=== PATIENT | male | born 1995 | race Asian ===

== ENCOUNTER 2017-06-28 12:48 | Emergency (ER) | payer MEDICAID ==
--- NOTE | 2017-06-28 13:08 | EDPHY ---
H & P Stated Complaint: GENERALIZED ABD PAIN SINCE THIS MORNING/NAUSEA Time Seen by Provider: 06/28/17 12:57 HPI/ROS: CHIEF COMPLAINT: Diffuse abdominal pain since this morning HISTORY OF PRESENT ILLNESS: 21-year-old male with remote history of appendectomy complaining of diffuse abdominal pain, cramping since this morning. Last bowel movement was this morning was normal, no melena hematochezia. No nausea or vomiting. He ate breakfast but notes that this exacerbated his abdominal pain. No recent illness. No fever or chills. No urinary abnormality. REVIEW OF SYSTEMS: A ten point review of systems was performed and is negative with the exception of the items mentioned in the HPI PAST MEDICAL & SURGICAL HISTORY: appendectomy 2 years ago SOCIAL HISTORY: nonsmoker student. PHYSICAL EXAM (Prior to examination, patient consented to physical exam, hands were washed and my usual and customary physical exam procedures followed) 1) GENERAL: Well-developed, well-nourished, alert and oriented. Appears to be in no acute distress. 2) HEAD: Normocephalic, atraumatic 3) HEENT: Pupils equal, round, reactive to light bilaterally. Sclera anicteric. Nasopharynx, oropharynx, clear, no lesions. Moist mucous membranes Ears bilaterally with normal tympanic membranes. 4) NECK: Full range of motion, no meningeal signs. 5) LUNGS: Clear auscultation bilaterally, no wheezes, no rhonchi, no retractions. 6) HEART: Regular rate and rhythm, no murmur, no heave, no gallop. 7) ABDOMEN: diffusely tender to palpation all quadrants. No distension. , 8) MUSCULOSKELETAL: Moving all extremities, no focal areas of tenderness, no obvious trauma. No peripheral edema or discoloration. 9) BACK: No CVA tenderness, no midline vertebral tenderness, no fluctuance, no step-off, no obvious trauma, no visual or palpable abnormality. 10) SKIN: No rash, no petechiae. 11) : Normal male external genitalia bilateral testicles nontender non high- riding, bilateral cremasteric reflex present and brisk DIFFERENTIAL DIAGNOSIS: My differential diagnosis includes, but is not limited to, acute cholecystitis, bowel obstruction, acute pancreatitis, testicular torsion, gastritis and urinary tract infection. The patient understands that this diagnosis is provisional and can never be 100% accurate. This is a partial list of diagnoses considered. These considerations are based on history, physical exam, past history and reassessment. - Personal History Current Tetanus/Diphtheria Vaccine: Yes - Medical/Surgical History Hx Asthma: No Hx Chronic Respiratory Disease: No Hx Diabetes: No Hx Cardiac Disease: No Hx Renal Disease: No Hx Cirrhosis: No Hx Alcoholism: No Hx HIV/AIDS: No Hx Splenectomy or Spleen Trauma: No Other PMH: APPY - Social History Smoking Status: Never smoked Constitutional: Initial Vital Signs Temperature (C) 36.5 C 06/28/17 12:52 Heart Rate 80 06/28/17 12:52 Respiratory Rate 16 06/28/17 12:52 Blood Pressure 121/69 H 06/28/17 12:52 O2 Sat (%) 98 06/28/17 12:52 O2 Delivery Mode Room Air Allergies/Adverse Reactions: No Known Allergies Allergy (Verified 06/28/17 12:51) Home Medications: Medication Instructions Recorded Lisdexamfetamine Dimesylate 30 mg PO DAILY 07/31/15 [Vyvanse] Ascorbic Acid [Vitamin C 500 mg 500 mg PO DAILY 01/13/16 (*)] Cetirizine [ZyrTEC 10 mg (*)] 10 mg PO DAILY 01/13/16 Multivitamins [Multivitamin (*)] 1 each PO DAILY 01/13/16 Pantoprazole Sodium [Protonix 40mg 40 mg PO DAILY #30 tab 06/28/17 (RX)] Medical Decision Making - Diagnostics Imaging Results: Imaging Impressions Abdomen Ultrasound 06/28/17 14:27 Impression: No cholelithiasis or biliary ductal dilation. Findings and recommendations discussed with Emergency Department physicianJuan Carlos at 15:02 hour, 06/28/2017. Final report concurs with initial preliminary interpretation. Images reviewed myself ED Course/Re-evaluation: 2:27 p.m.: Re-evaluation, patient states that his diffuse abdominal pain is now resolved however he is complaining of localized pain to the right upper quad. On evaluation at time he is focally tender right upper quadrant positive Thomas sign. Will obtain ultrasound and re-evaluate 3:32 p.m.: Patient was re-evaluated with serial examinations and case discussed with secondary supervising physician Dr. Valdez in the ER. Patient has remote history of appendectomy, no evidence of acute cholecystitis on ultrasound. Doubt acute pancreatitis in the presence of normal lipase. Doubt bowel obstruction as he is passing stool in flatus as normal. Discussed possibility of acute gastritis. He notes some relief with GI cocktail. I have given him my usual and customary abdominal precautions, instructions, dietary recommendations. I am starting her on a proton pump inhibitor. At this time I do not think that hospital admission, further diagnostic studies such as CT imaging are currently indicated I do not think the benefits outweigh the risks in this 21-year-old male. I reviewed with him his normal renal findings on the right kidney on ultrasound. He has been informed that ureteric stone is not ruled out as he was noted to have 1+ blood on his urinalysis , the etiology of which is not completely clear. At this time however as his pain is controlled I do not think that further diagnostic studies are indicated. He feels comfortable with this plan. To return to ER should he develop new or worsening symptoms. - Data Points Laboratory Results: Laboratory Results 06/28/17 13:17 11 13:17 06/28/17 06/28/17 06/28/17 13:17 13:17 13:17 WBC 10.19 10^3/uL H 10^3/uL (3.80-9.50) RBC 6.08 10^6/uL 10^6/uL (4.40-6.38) Hgb 19.0 g/dL H g/dL (13.7-17.5) Hct 51.8 % H % (40.0-51.0) MCV 85.2 fL fL (81.5-99.8) MCH 31.3 pg pg (27.9-34.1) MCHC 36.7 g/dL g/dL (32.4-36.7) RDW 12.6 % % (11.5-15.2) Plt Count 205 10^3/uL 10^3/uL (150-400) MPV 8.6 fL L fL (8.7-11.7) Neut % (Auto) 86.7 % H % (39.3-74.2) Lymph % (Auto) 7.2 % L % (15.0-45.0) [place] % (Auto) 5.1 % % (4.5-13.0) Eos % (Auto) 0.3 % L % (0.6-7.6) Baso % (Auto) 0.2 % L % (0.3-1.7) Nucleat RBC Rel Count 0.0 % % (0.0-0.2) Absolute Neuts (auto) 8.84 10^3/uL H 10^3/uL (1.70-6.50) Absolute Lymphs (auto) 0.73 10^3/uL L 10^3/uL (1.00-3.00) Absolute Monos (auto) 0.52 10^3/uL 10^3/uL (0.30-0.80) Absolute Eos (auto) 0.03 10^3/uL 10^3/uL (0.03-0.40) Absolute Basos (auto) 0.02 10^3/uL 10^3/uL (0.02-0.10) Absolute Nucleated RBC 0.00 10^3/uL 10^3/uL (0-0.01) Immature Gran % 0.5 % % (0.0-1.1) Immature Gran # 0.05 10^3/uL 10^3/uL (0.00-0.10) Sodium 140 mEq/L mEq/L (134-144) Potassium 4.2 mEq/L mEq/L (3.5-5.2) Chloride 106 mEq/L mEq/L (97-110) Carbon Dioxide 19 mEq/l L mEq/l (22-31) Anion Gap 15 mEq/L mEq/L (8-16) BUN 26 mg/dL H mg/dL (7-23) Creatinine 1.0 mg/dL mg/dL (0.7-1.3) Estimated GFR > 60 Glucose 96 mg/dL mg/dL (70-100) Calcium 9.3 mg/dL mg/dL (8.5-10.4) Total Bilirubin 0.8 mg/dL mg/dL (0.1-1.4) Conjugated Bilirubin 0.2 mg/dL mg/dL (0.0-0.5) Unconjugated Bilirubin 0.6 mg/dL mg/dL (0.0-1.1) AST 32 IU/L IU/L (17-59) ALT 49 IU/L IU/L (21-72) Alkaline Phosphatase 79 IU/L IU/L (38-126) Total Protein 6.9 g/dL g/dL (6.3-8.2) Albumin 4.6 g/dL g/dL (3.5-5.0) Lipase 81 IU/L IU/L (23-300) Urine Color YELLOW Urine Appearance CLEAR Urine pH 5.0 (5.0-7.5) Ur Specific [place] 1.020 (1.002-1.030) Urine Protein NEGATIVE (NEGATIVE) Urine Ketones NEGATIVE (NEGATIVE) Urine Blood 1+ H (NEGATIVE) Urine Nitrate NEGATIVE (NEGATIVE) Urine Bilirubin NEGATIVE (NEGATIVE) Urine Urobilinogen NEGATIVE EU EU (0.2-1.0) Ur Leukocyte Esterase NEGATIVE (NEGATIVE) Urine RBC 1-3 /hpf /hpf (0-3) Urine WBC 1-3 /hpf /hpf (0-3) Ur Epithelial Cells NONE SEEN /lpf /lpf (NONE-1+) Urine Mucus TRACE /lpf /lpf (NONE-1+) Urine Glucose NEGATIVE (NEGATIVE) Medications Given: Discontinued Medications Al Hydroxide/Mg Hydroxide (Maalox Susp) 30 ml PO ONCE ONE Stop: 06/28/17 13:29 Last Admin: 06/28/17 14:02 Dose: 30 ml Hyoscyamine Sulfate (Levsin, Hyomax-Sl) 0.25 mg PO ONCE ONE Stop: 06/28/17 13:29 Last Admin: 06/28/17 14:01 Dose: 0.25 mg Sodium Chloride (Ns) 1,000 mls @ 0 mls/hr IV ONCE ONE PRN Reason: Wide Open Stop: 06/28/17 13:56 Last Admin: 06/28/17 14:05 Dose: 1,000 mls Lidocaine (Lidocaine 2% Viscous) 15 ml PO ONCE ONE Stop: 06/28/17 13:29 Last Admin: 06/28/17 14:02 Dose: 15 ml Departure - Departure Disposition: Home, Routine, Self-Care Clinical Impression: Abdominal pain Qualifiers: Abdominal location: epigastric Qualified Code(s): R10.13 - Epigastric pain Condition: Good Instructions: Acute Abdominal Pain (ED) Additional Instructions: Seek immediate medical attention if you develop new or worsening symptoms, if you develop fevers, chills, inability to tolerate oral intake or any other symptoms that concerns you. Referrals: [facility],. [Clinic] - 07/01/17 Gonzalo Henry MD [Medical Doctor] - 07/01/17 Stand Alone Forms: School Excuse Prescriptions: Pantoprazole Sodium [Protonix 40mg (RX)] 40 mg PO DAILY #30 tab
[2017-06-28] MEDS ORDERED: LIDOCAINE 2% VISCOUS 15 ML UDCUP PO ONE (13:28)
[2017-06-28] MEDS ORDERED: MAG HYDROX/AL HYDROX/SIMETH 30 ML UDCUP PO ONE (13:28)
[2017-06-28] MEDS ORDERED: HYOSCYAMINE SULFATE 0.125 MG TAB PO ONE (13:28)
[2017-06-28 13:33] LABS: PLATELET COUNT 205 10^3/uL (150-400)
--- NOTE | 2017-06-28 13:48 | CPEKG ---
Heart Rate: 83 RR Interval: 723 P-R Interval: 128 QRSD Interval: 96 QT Interval: 364 QTC Interval: 428 P Spencer: 61 QRS Spencer: 94 T Wave Spencer: 38 EKG Severity - OTHERWISE NORMAL ECG - EKG Impression: SINUS RHYTHM EKG Impression: BORDERLINE RIGHT AXIS DEVIATION Electronically Signed By: Tony Ulloa 28-Jun-2017 14:07:02
[2017-06-28] MEDS ORDERED: NS 1,000 ML IV ONE (13:55)
[2017-06-28 15:42] VITALS: BP 116/59; PULSE 75; RESP 15; TEMP 98.1; O2SAT 93
== END 2017-06-28 15:45 | disposition home or self-care (01) ==
PROC: 3E0337Z Introduction of Electrolytic and Water Balance Substance into Peripheral Vein, Percutaneous Approach (ICD-10-PCS; principal; 2017-06-28)
DX: R10.13 Epigastric pain (principal); Z90.49 Acquired absence of other specified parts of digestive tract

== ENCOUNTER 2017-09-06 16:52 | Emergency (ER) | payer MEDICAID ==
--- NOTE | 2017-09-06 17:30 | EDPHY ---
General - History Smoking Status: Never smoked Narrative: CHIEF COMPLAINT: Umbilical hernia, pain, vomiting HISTORY OF PRESENT ILLNESS: The patient presents with complaints of umbilical hernia, abdominal pain, vomiting, rectal pain. Patient reports "feeling a lump" there is umbilicus for the past 6 7 months. This morning he saw primary care physician for this and was diagnosed with an umbilical hernia. He was referred to general surgeon. Following this he began developed abdominal pain, vomiting, rectal pain. Symptoms were present for several hours. At this time the abdominal pain is present and it is [id number]. The vomiting has subsided and he is now nauseated only. No constipation. The rectal pain has resolved. No bloody stools or emesis. No trauma or injury. He did have a laparoscopic appendectomy in December 2015. His primary care physician referred him back to [facility] for surgery referral. He has not yet made this appointment. No other associated complaints or modifying factors. No medications taken. Last NPO 1:00 p.m. today. REVIEW OF SYSTEMS: Ten systems reviewed and are negative unless otherwise noted in the HPI PCP: Dr. Quinones SPECIALISTS: Dr. Díaz PAST MEDICAL HISTORY: Uncomplicated medical history PAST SURGICAL HISTORY: Laparoscopic appendectomy with Dr. Díaz SOCIAL HISTORY: Nonsmoker. Occasional alcohol. Occasional marijuana. [place] hats on [place] FAMILY HISTORY: Noncontributory EXAMINATION General Appearance: Alert, no distress Head: normocephalic, atraumatic Eyes: Pupils equal and round, no conjunctival pallor or injection ENT, Mouth: Mucous membranes moist. Airway patent Neck: Normal inspection, supple, non-tender Respiratory: Lungs are clear to auscultation. No wheezing, rhonchi or crackles Cardiovascular: Regular rate and rhythm. No murmur Gastrointestinal: Abdomen is soft and nondistended. Bowel sounds are present in all 4 quadrants. No tympany or rigidity. There is a palpable umbilical hernia that I cannot reduce. No guarding. No rigidity Back: non-tender, no bony abnormalities Neurological: A&O, nonfocal, normal gait Skin: Warm and dry, no rash Extremities: Nontender, no pedal edema Psychiatric: Mood and affect normal DIFFERENTIAL DIAGNOSES: Including but not limited to umbilical hernia, strangulated umbilical hernia, incarcerated umbilical hernia, enteritis, colitis, proctitis, gastroenteritis MDM: 5:25 p.m. Umbilical hernia with abdominal pain vomiting earlier today. He also had some tenesmus that has resolved. He does have a palpable hernia that I could not reduce easily. His abdominal exam is otherwise benign. He is status post appendectomy approximately 1 year ago. He is afebrile with vital signs stable. I have ordered laboratory studies, creatinine and CT scan the abdomen and pelvis. He is in no acute distress. No active vomiting 6:45 p.m. Notified by radiologist Dr. March. CT scan of the abdomen pelvis is unremarkable for any acute findings. Laboratory studies reveal no leukocytosis. Lipase is normal. He is mildly hemoconcentrated. I have ordered IV fluid and IV Toradol. I will re-evaluate. 7:00 p.m. Patient re-evaluated. He is resting comfortably. Still has mild abdominal pain. No vomiting. He is actually feeling hungry now and asking to eat. I recently had ordered IV fluids but he is not tolerating intake by mouth, thus I will encourage fluid intake. I will give him dose of anti-inflammatory. I informed him that his previous surgeon is Dr. Díaz and that he should contact him for outpatient follow-up. I had mistakenly missed a liver function panel, thus I have ordered it now. 7:30 p.m. Patient re-evaluated. He is resting comfortably. He is tolerating intake by mouth the fluid and food. No vomiting. No nausea. LFTs are all within normal limits. At this point I do feel he is stable for discharge home. He is to follow up with his primary care physician and previous surgeon. He has ED precautions. He is comfortable this plan and discharged home stable condition. SUPERVISION: Patient was independently examined, but I discussed the case with my secondary supervising physician Dr. Jacobson ([facility]) Medical Decision Making: I did not see this patient while he was in the emergency department. However his care was discussed with the PA while the patient was in the department. I agree with treatment plan and management. IM the secondary supervising physician (Dhaval Jacobson) - Diagnostics Imaging Results: Imaging Impressions Abdomen CT 09/06/17 17:26 Impression: 1. No umbilical hernia, mass, or fluid collection. 2. Bowel pattern is within normal limits. No evidence of obstruction or adynamic ileus. 3. No localized intra-abdominal inflammatory process, free fluid, or abscess. Findings discussed with Emergency Department physician, Olvin Camarillo on 07/2018, 18:54. - Objective Vital Signs: Initial Vital Signs Temperature (C) 98.6 F 09/06/17 17:02 Heart Rate 97 09/06/17 17:02 Blood Pressure 151/88 H 09/06/17 17:02 O2 Sat (%) 98 09/06/17 17:02 O2 Delivery Mode Room Air Allergies/Adverse Reactions: No Known Allergies Allergy (Unverified 09/06/17 17:02) Home Medications: Medication Instructions Recorded NK [No Known Home Meds] 09/06/17 Laboratory Results: Laboratory Results 09/06/17 18:00 09/06/17 09/06/17 09/06/17 18:01 18:00 18:00 WBC RBC Hgb POC Hgb 18.7 gm/dL H gm/dL (13.7-17.5) Hct POC Hct 55 % H % (40-51) MCV MCH MCHC RDW Plt Count MPV Neut % (Auto) Lymph % (Auto) [place] % (Auto) Eos % (Auto) Baso % (Auto) Nucleat RBC Rel Count Absolute Neuts (auto) Absolute Lymphs (auto) Absolute Monos (auto) Absolute Eos (auto) Absolute Basos (auto) Absolute Nucleated RBC Immature Gran % Immature Gran # POC Sodium 142 mEq/L mEq/L (135-145) POC Potassium 3.7 mEq/L mEq/L (3.3-5.0) POC Chloride 104 mEq/L mEq/L (97-110) POC BUN 25 mg/dL H mg/dL (7-23) POC Creatinine 1.2 mg/dL mg/dL (0.7-1.3) POC Glucose 91 mg/dL mg/dL (70-100) Total Bilirubin 0.5 mg/dL mg/dL (0.1-1.4) Conjugated Bilirubin 0.3 mg/dL mg/dL (0.0-0.5) Unconjugated Bilirubin 0.2 mg/dL mg/dL (0.0-1.1) AST 35 IU/L IU/L (17-59) ALT 43 IU/L IU/L (21-72) Alkaline Phosphatase 88 IU/L IU/L (38-126) Total Protein 7.6 g/dL g/dL (6.3-8.2) Albumin 4.8 g/dL g/dL (3.5-5.0) Lipase 99 IU/L IU/L (23-300) 09/06/17 18:00 WBC 8.53 10^3/uL 10^3/uL (3.80-9.50) RBC 6.04 10^6/uL 10^6/uL (4.40-6.38) Hgb 18.6 g/dL H g/dL (13.7-17.5) POC Hgb Hct 52.0 % H % (40.0-51.0) POC Hct MCV 86.1 fL fL (81.5-99.8) MCH 30.8 pg pg (27.9-34.1) MCHC 35.8 g/dL g/dL (32.4-36.7) RDW 12.4 % % (11.5-15.2) Plt Count 214 10^3/uL 10^3/uL (150-400) MPV 8.7 fL fL (8.7-11.7) Neut % (Auto) 73.4 % % (39.3-74.2) Lymph % (Auto) 20.0 % % (15.0-45.0) [place] % (Auto) 5.5 % % (4.5-13.0) Eos % (Auto) 0.4 % L % (0.6-7.6) Baso % (Auto) 0.2 % L % (0.3-1.7) Nucleat RBC Rel Count 0.0 % % (0.0-0.2) Absolute Neuts (auto) 6.26 10^3/uL 10^3/uL (1.70-6.50) Absolute Lymphs (auto) 1.71 10^3/uL 10^3/uL (1.00-3.00) Absolute Monos (auto) 0.47 10^3/uL 10^3/uL (0.30-0.80) Absolute Eos (auto) 0.03 10^3/uL 10^3/uL (0.03-0.40) Absolute Basos (auto) 0.02 10^3/uL 10^3/uL (0.02-0.10) Absolute Nucleated RBC 0.00 10^3/uL 10^3/uL (0-0.01) Immature Gran % 0.5 % % (0.0-1.1) Immature Gran # 0.04 10^3/uL 10^3/uL (0.00-0.10) POC Sodium POC Potassium POC Chloride POC BUN POC Creatinine POC Glucose Total Bilirubin Conjugated Bilirubin Unconjugated Bilirubin AST ALT Alkaline Phosphatase Total Protein Albumin Lipase Point of Care Test Results: 09/06/17 18:01 POC Sodium 142 POC Potassium 3.7 POC Chloride 104 POC BUN 25 H POC Creatinine 1.2 POC Glucose 91 Departure - Departure Disposition: Home, Routine, Self-Care Clinical Impression: Periumbilical abdominal pain Condition: Good Instructions: Acute Abdominal Pain (DC), Umbilical Hernia (ED) Additional Instructions: 1. [id number] medications as discussed as needed 2. Contact your previous surgeon as provided 3. ED precautions as discussed Referrals: Daniel Vu DO [Primary Care Provider] - As per Instructions
[2017-09-06 18:13] LABS: PLATELET COUNT 214 10^3/uL (150-400)
[2017-09-06] MEDS ORDERED: IOPAMIDOL (ISOVUE-300) 100 ML BTL ONE (18:13)
[2017-09-06] MEDS ORDERED: KETOROLAC 30 MG/1 ML SDV IVP ONE (18:45)
[2017-09-06] MEDS ORDERED: NS 1,000 ML IV ONE (18:45)
[2017-09-06 19:41] VITALS: BP 126/69; PULSE 79; RESP 15; TEMP 98.1; O2SAT 94
== END 2017-09-06 19:39 | disposition home or self-care (01) ==
DX: R10.33 Periumbilical pain (principal); Z90.49 Acquired absence of other specified parts of digestive tract
CPT/HCPCS: 82947-QW; Q9967

== ENCOUNTER 2018-01-16 14:58 | Emergency (ER) | payer MEDICAID ==
[2018-01-16] MEDS ORDERED: IBUPROFEN 600 MG TAB PO ONE (15:50)
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
[2018-01-16 16:17] VITALS: BP 131/84
== END 2018-01-16 16:16 | disposition home or self-care (01) ==
DX: S93.401A Sprain of unspecified ligament of right ankle, initial encounter (principal); S70.11XA Contusion of right thigh, initial encounter; W19.XXXA Unspecified fall, initial encounter; Y99.8 Other external cause status; Y93.01 Activity, walking, marching and hiking
CPT/HCPCS: L4350

== ENCOUNTER 2018-03-19 12:15 | Emergency (ER) | payer MEDICAID ==
--- NOTE | 2018-03-19 12:32 | EDPHY ---
General Time Seen by Provider: 03/19/18 12:22 Narrative: CHIEF COMPLAINT: Back pain, lightheadedness HISTORY OF PRESENT ILLNESS: Patient presents by EMS and is seen at time of arrival. He complains of back pain and lightheaded and nausea sensation. He says he has performing lifts prior to arrival when he felt a sudden onset of low back pain. This was similar to previous episodes of disc herniations. The pain is severe, but he was more concerned that when he stood up from this he was very lightheaded, nauseated and felt as though he was going to pass out. He laid down and symptoms improved. He then made 2 more attempts of standing up, with symptoms return. He had no chest pain during this. He reports no sweating, headache or neck pain. He feels much better if he lays at rest. Low back pain does not radiate at this time. He has a history of low back injury with left lower extremity paresthesia that is unchanged from the injury today. No incontinence of bowel or bladder. No other associated complaints or modifying factors. REVIEW OF SYSTEMS: Ten systems reviewed and are negative unless otherwise noted in the HPI PCP: Dr. Allred SPECIALISTS: None PAST MEDICAL HISTORY: Low back pain, left lower extremity paresthesia PAST SURGICAL HISTORY: No recent surgeries SOCIAL HISTORY: Occasional alcohol and cigarette use but occasional marijuana use. Lives and works here independently FAMILY HISTORY: Contributory EXAMINATION General Appearance: Alert, no distress. Lying in the prone position. Well- developed well-nourished. Head: normocephalic, atraumatic. No signs of trauma. Eyes: Pupils equal and round, no conjunctival pallor or injection ENT, Mouth: Mucous membranes moist Neck: Normal inspection, supple, non-tender. Painless range of motion all planes Respiratory: No retractions or distress Cardiovascular: Regular rate and rhythm. No murmur Gastrointestinal: Abdomen is soft and nontender Back: There is soft tissue midline tenderness of the low back without any crepitus or deformity. Unable to test range Neurological: GCS 15. A&O, nonfocal, like sensory symmetric in the upper lower extremities. Strength symmetric upper lower extremities. Normal finger-to- nose. No pronator drift. Skin: Warm and dry, no rash no petechiae or purpura Extremities: Nontender, no pedal edema. Range of motion of her lower extremities symmetric while lying prone. Psychiatric: Mood and affect normal DIFFERENTIAL DIAGNOSES: Including but not limited to near syncope, orthostasis, dehydration, vasovagal, lumbar strain, lumbar disc herniation, acute cord compression MDM: 12:30 p.m. Acute exacerbation of ongoing low back pain while performing does less with subsequent lightheadedness, near-syncope and nausea. No chest pain. Vital signs remained within normal limits. I have ordered orthostatic vital signs. He is neuro intact distally aside from baseline left lower extremity paresthesia that is unchanged from today's injury. 12:50 p.m. There was 20 point change in systolic pressure from lying to seated position, the patient was symptomatic. Thus I have ordered IV fluid administration will re-evaluate. 1:50 p.m. Patient re-evaluated. He is feeling much better. He has received 1 L IV fluid and has ambulated to the bathroom without any difficulty. He has no headache. He still has back pain but without radiculopathy, or any signs of acute cord compression or cauda equina. We discussed short course of symptomatic medication for his back pain with referral to a clinical documentation specialist for definitive care. We discussed ED precautions for numbness, tingling, incontinence, weakness or intractable pain. We discussed increase fluid intake for the next few days for the orthostasis. He is comfortable this plan and discharged home stable condition. SUPERVISION: This patient was independently evaluated without direct involvement of or examination by the attending physician. - History Smoking Status: Never smoked - Objective Vital Signs: Initial Vital Signs Temperature (C) 98.1 F 03/19/18 12:32 Heart Rate 90 03/19/18 12:32 Respiratory Rate 16 03/19/18 12:32 Blood Pressure 101/85 H 03/19/18 12:32 O2 Sat (%) 99 03/19/18 12:32 O2 Delivery Mode Room Air Allergies/Adverse Reactions: No Known Allergies Allergy (Verified 01/16/18 15:01) Home Medications: Medication Instructions Recorded Cyclobenzaprine [Flexeril 10 MG 10 mg PO TID PRN #15 tab 03/19/18 (*)] oxyCODONE HCL/ACETAMINOPHEN 1 each PO Q4-6PRN PRN #7 tablet 03/19/18 [Percocet 5-325 mg Tablet] predniSONE [Deltasone] 60 mg PO DAILY #12 tablet 03/19/18 Medications Given: Discontinued Medications Fentanyl (Sublimaze) 100 mcg IVP EDNOW ONE Stop: 03/19/18 12:51 Last Admin: 03/19/18 13:07 Dose: 100 mcg Sodium Chloride (Ns) 1,000 mls @ 0 mls/hr IV EDNOW ONE; Wide Open PRN Reason: Protocol Stop: 03/19/18 12:50 Last Admin: 03/19/18 13:02 Dose: 1,000 mls Departure - Departure Disposition: Home, Routine, Self-Care Clinical Impression: Near syncope, Orthostasis Acute low back pain Qualifiers: Back pain laterality: unspecified Sciatica presence: without sciatica Qualified Code(s): M54.5 - Low back pain Condition: Good Instructions: Low Back Strain (ED), Near Syncope (ED) Additional Instructions: 1. Medications as prescribed as needed 2. Increase fluid intake for next 48 hr 3. Follow up with Orthopedics and clinical documentation specialist as needed for definitive care of the low back pain 4. Return here for any intractable pain, numbness, weakness, incontinence of bowel or bladder, fever Referrals: Jordan Randall MD [Medical Doctor] - As per Instructions DORA YUAN [Non Staff and Non MD] - As per Instructions Stand Alone Forms: Work Excuse Prescriptions: Cyclobenzaprine [Flexeril 10 MG (*)] 10 mg PO TID PRN #15 tab PRN Reason: Spasms oxyCODONE HCL/ACETAMINOPHEN [Percocet 5-325 mg Tablet] 1 each PO Q4-6PRN PRN #7 tablet PRN Reason: Pain, Breakthrough predniSONE [Deltasone] 60 mg PO DAILY #12 tablet
[2018-03-19] MEDS ORDERED: NS 1,000 ML IV ONE (12:49)
[2018-03-19] MEDS ORDERED: fentaNYL 100 MCG/2 ML INJ IVP ONE (12:50)
[2018-03-19 14:13] VITALS: BP 127/76
== END 2018-03-19 14:13 | disposition home or self-care (01) ==
LOC: EDUNIT# → EDBD
DX: M54.5 Low back pain (principal); E86.9 Volume depletion, unspecified; I95.1 Orthostatic hypotension
CPT/HCPCS: 96374; J3010

== ENCOUNTER → 2018-05-05 | Outpatient (CLI) | payer MEDICAID | LOC: CIMAGING 10:54 | PROVIDERS: ATTEND Family Medicine | DX: M51.36 Other intervertebral disc degeneration, lumbar region (principal); K59.00 Constipation, unspecified | CPT/HCPCS: 72100-PO ==